=== PATIENT | male | born 1980 | race Caucasian/White ===

== ENCOUNTER 2018-01-12 09:41 | Emergency (ER) | payer BC ==
[2018-01-12 10:22] VITALS: RESP 18
[2018-01-12] MEDS ORDERED: KETOROLAC 30 MG/ML 1 ML VIAL IVP STA (10:40)
[2018-01-12] MEDS ORDERED: SODIUM CHLORIDE 0.9% 1,000 ML IV STA (10:40)
--- NOTE | 2018-01-12 10:46 | ED ---
General Adult HPI - General Chief complaint: Abdominal Pain Stated complaint: abdominal pain Time Seen by Provider: 01/12/18 10:34 Source: patient, RN notes reviewed Mode of arrival: ambulatory Limitations: no limitations - History of Present Illness Initial comments: 37-year-old male presents to the emergency department with a chief complaint of left-sided abdominal pain. Patient states that this started about 2 days ago. Patient states it initially came and went in with like a stabbing pain to the left side of the abdomen. He states is been no nausea there is been no vomiting. He denies any fever chills with this. He denies any diarrhea. She denies any history of abdominal pain like this in the past. He denies any surgeries on the abdomen. He states he was concerned because the pain was not getting any better and seemingly worsening so he thought that he should be seen. Patient denies any recent fever, chills, shortness of breath, chest pain, back pain, nausea vomiting, numbness or tingling, dysuria or hematuria, constipation or diarrhea, headaches or visual changes, or any other current symptoms. - Related Data Previous Rx's Medication Instructions Recorded Dicyclomine [Bentyl] 10 mg PO TID #20 capsule 01/12/18 Allergies Allergy/AdvReac Type Severity Reaction Status Date / Time Penicillins Allergy Unknown Verified 01/12/18 10:53 morphine AdvReac Nausea & Verified 01/12/18 10:53 Vomiting Review of Systems ROS Statement: Those systems with pertinent positive or pertinent negative responses have been documented in the HPI. ROS Other: All systems not noted in ROS Statement are negative. Past Medical History Past Medical History: No Reported History History of Any Multi-Drug Resistant Organisms: MRSA Date of last positivie culture/infection: 2003 MDRO Source:: shoulder/stomach/leg Additional Past Surgical History / Comment(s): foot, chest tube Past Psychological History: No Psychological Hx Reported Smoking Status: Current every day smoker Past Alcohol Use History: Occasional Past Drug Use History: None Reported General Exam - General Exam Comments Initial Comments: General: The patient is awake and alert, in no distress, and does not appear acutely ill. Eye: Pupils are equal, round and reactive to light, extra-ocular movements are intact; there is normal conjunctiva bilaterally. No signs of icterus. Ears, nose, mouth and throat: There are moist mucous membranes and no oral lesions. Neck: The neck is supple, there is no tenderness. Cardiovascular: There is a regular rate and rhythm. No murmur, rub or gallop is appreciated. Respiratory: Lungs are clear to auscultation, respirations are non-labored, breath sounds are equal. No wheezes, stridor, rales, or rhonchi. Gastrointestinal: Soft, non-distended, non-tender abdomen without masses or organomegaly noted. There is no rebound or guarding present. No CVA tenderness. Bowel sounds are unremarkable. Back: There is no tenderness to palpation in the midline. There is no obvious deformity. No rashes noted. Musculoskeletal: Normal ROM, no tenderness, There is no pedal edema. There is no calf tenderness or swelling. Sensation intact. Pulses equal bilaterally 2+. Neurological: CN II-XII intact, There are no obvious motor or sensory deficits. Coordination appears grossly intact. Speech is normal. Skin: Skin is warm and dry and no rashes or lesions are noted. Psychiatric: Cooperative, appropriate mood & affect, normal judgment. Limitations: no limitations Course Vital Signs 01/12/18 10:19 Temperature 99.0 F Pulse Rate 91 Respiratory 18 Rate Blood Pressure 138/93 O2 Sat by Pulse 97 Oximetry Medical Decision Making - Medical Decision Making 37-year-old male presents for left-sided abdominal pain. This time CAT scan is reviewed that does show suspicion for enteritis. This time we will start patient on Bentyl for home. We did discuss follow-up with her doctor. We discussed return parameters discussed outpatient and family's questions. They stated they understood and management this plan. All questions have been answered. They will be discharged. - Lab Data Result diagrams: 01/12/18 11:00 01/12/18 11:00 Lab Results 01/12/18 01/12/18 01/12/18 Range/Units 11:00 11:00 11:02 WBC 9.4 (3.8-10.6) k/uL RBC 5.01 (4.30-5.90) m/uL Hgb 16.4 (13.0-17.5) gm/dL Hct 50.7 (39.0-53.0) % MCV 101.2 H (80.0-100.0) fL MCH 32.7 (25.0-35.0) pg MCHC 32.3 (31.0-37.0) g/dL RDW 12.3 (11.5-15.5) % Plt Count 220 (150-450) k/uL Neutrophils % 85 % Lymphocytes % 7 % Monocytes % 6 % Eosinophils % 1 % Basophils % 0 % Neutrophils # 8.0 H (1.3-7.7) k/uL Lymphocytes # 0.6 L (1.0-4.8) k/uL Monocytes # 0.6 (0-1.0) k/uL Eosinophils # 0.1 (0-0.7) k/uL Basophils # 0.0 (0-0.2) k/uL Sodium 136 L (137-145) mmol/L Potassium 4.5 (3.5-5.1) mmol/L Chloride 99 (98-107) mmol/L Carbon Dioxide 26 (22-30) mmol/L Anion Gap 11 mmol/L BUN 14 (9-20) mg/dL Creatinine 0.82 (0.66-1.25) mg/dL Est GFR (MDRD) Af Amer >60 (>60 ml/min/1.73 sqM) Est GFR (MDRD) Non-Af >60 (>60 ml/min/1.73 sqM) Glucose 107 H (74-99) mg/dL Calcium 9.1 (8.4-10.2) mg/dL Total Bilirubin 0.4 (0.2-1.3) mg/dL AST 36 (17-59) U/L ALT 43 (21-72) U/L Alkaline Phosphatase 66 (38-126) U/L Total Protein 7.0 (6.3-8.2) g/dL Albumin 4.2 (3.5-5.0) g/dL Urine Color Yellow Urine Appearance Clear (Clear) Urine pH 6.5 (5.0-8.0) Ur Specific [place] 1.019 (1.001-1.035) Urine Protein Trace H (Negative) Urine Glucose (UA) Negative (Negative) Urine Ketones Negative (Negative) Urine Blood Negative (Negative) Urine Nitrite Negative (Negative) Urine Bilirubin Negative (Negative) Urine Urobilinogen 2.0 (<2.0) mg/dL Ur Leukocyte Esterase Negative (Negative) - Radiology Data Radiology results: report reviewed, image reviewed Disposition Clinical Impression: Enteritis Disposition: HOME SELF-CARE Condition: Stable Instructions: Enteritis (ED) Additional Instructions: Please use medication as discussed. Please follow up with family doctor if symptoms have not improved over the next two days. Please return to the emergency room if your symptoms increase or worsen or for any other concerns. Prescriptions: Dicyclomine [Bentyl] 10 mg PO TID #20 capsule Referrals: Von Amato DO [Primary Care Provider] - 1-2 days Time of Disposition: 12:37
[2018-01-12 11:17] LABS: Basophils % (A) 0 %; Eosinophils # (A) 0.1 k/uL (0-0.7); Eosinophils % (A) 1 %; HCT 50.7 % (39.0-53.0); HGB 16.4 gm/dL (13.0-17.5); Lymphocytes # (A) 0.6 k/uL (1.0-4.8); Lymphocytes % (A) 7 %; MCH 32.7 pg (25.0-35.0); MCHC 32.3 g/dL (31.0-37.0); MCV 101.2 fL (80.0-100.0); Mean Platelet Volume 7.1; Monocytes # (A) 0.6 k/uL (0-1.0); Monocytes % (A) 6 %; Neutrophils % (A) 85 %; Platelet Count 220 k/uL (150-450); RBC 5.01 m/uL (4.30-5.90); RDW 12.3 % (11.5-15.5); WBC 9.4 k/uL (3.8-10.6)
[2018-01-12 11:22] LABS: Appearance,Urine Clear (Clear); Bilirubin,Urine Negative (Negative); Blood,Urine Negative (Negative); Color,Urine Yellow; Glucose,Urine (UA) Negative (Negative); Ketones,Urine Negative (Negative); Leukocyte Esterase,Urine Negative (Negative); Nitrite,Urine Negative (Negative); PH, Urine 6.5 (5.0-8.0); Protein,Urine Trace (Negative); Specific Gravity,Urine 1.019 (1.001-1.035)
[2018-01-12] MEDS ORDERED: RX INFO: IV CONTRAST WAS GIVEN 1 EACH MISC MISCELLANE PRN (11:25)
[2018-01-12 11:34] LABS: ALT 43 U/L (21-72); AST 36 U/L (17-59); Albumin 4.2 g/dL (3.5-5.0); Alkaline Phosphatase 66 U/L (38-126); Anion Gap 11 mmol/L; Blood Urea Nitrogen 14 mg/dL (9-20); Calcium 9.1 mg/dL (8.4-10.2); Carbon Dioxide 26 mmol/L (22-30); Chloride 99 mmol/L (98-107); Glucose 107 mg/dL (74-99); Potassium 4.5 mmol/L (3.5-5.1); Sodium 136 mmol/L (137-145); Total Bilirubin 0.4 mg/dL (0.2-1.3)
--- NOTE | 2018-01-12 12:19 | CT ---
EXAMINATION TYPE: CT abdomen pelvis w con DATE OF EXAM: 01/12/2018 COMPARISON: NONE HISTORY: pain CT DLP: 1246 mGycm Automated exposure control for dose reduction was used. TECHNIQUE: Helical acquisition of images from the lung bases through the pelvis have been completed. CONTRAST: Performed without Oral Contrast and with IV Contrast, patient injected with 100 mL of Omnipaque 300. FINDINGS: LUNG BASES: Minimal dependent atelectatic changes are present. AORTA: No significant abnormality is appreciated. LIVER/GB: No significant abnormality is appreciated. PANCREAS: No significant abnormality is seen. SPLEEN: No significant abnormality is seen. ADRENALS: No significant abnormality is seen. KIDNEYS: No significant abnormality is seen. REPRODUCTIVE ORGANS: No significant abnormality is seen BOWEL: Fluid-filled loops of small bowel are present. Some hyperdense luminal content in the left lo wer quadrant may represent radiopaque medication. No evident inflammatory change. There is a small um bilical hernia containing fat. The appendix is not seen. FREE AIR: No Free Air visible. ASCITES: None visible. PELVIC ADENOPATHY: None visualized. RETROPERITONEAL ADENOPATHY: No Retroperitoneal Adenopathy visible. URINARY BLADDER: No significant abnormality is seen. OSSEOUS STRUCTURES: Degenerative disc changes are present in the visualized spine. IMPRESSION: CORRELATE FOR POSSIBLE ENTERITIS, ILEUS. Additional findings above.
[2018-01-12 12:42] VITALS: BP 149/86; PULSE 81; TEMP 98
== END 2018-01-12 12:45 | disposition home or self-care (01) ==
LOC: EC 09:41
DX: K52.9 Noninfective gastroenteritis and colitis, unspecified (principal); F17.200 Nicotine dependence, unspecified, uncomplicated; Z88.0 Allergy status to penicillin; Z88.5 Allergy status to narcotic agent; Z86.14 Personal history of Methicillin resistant Staphylococcus aureus infection
CPT/HCPCS: 36415; 80053; 85025; 81003; 87086; 74177; 99284; 96374; 96361 ×2; J1885; Q9967

== ENCOUNTER 2021-04-20 02:09 | Emergency (ER) | payer BC ==
[2021-04-20 02:16] VITALS: BP 121/74; PULSE 74; RESP 18; TEMP 97.4
--- NOTE | 2021-04-20 02:26 | ED ---
Lower Extremity Injury HPI - General Chief Complaint: Extremity Injury, Lower Stated Complaint: Right foot injury Time Seen by Provider: 04/20/21 02:16 Source: patient, RN notes reviewed Mode of arrival: wheelchair Limitations: no limitations - History of Present Illness Initial Comments: Patient is a 40-year-old male that presents immersed, right foot pain. He notes that he was at the gym yesterday when he dropped a 25 pump placement approximately one and a half to 2 feet off the ground on the top of his right foot. He notes that it swelled up a little bit but he tried icing and taking some Motrin. He notes that it is tender to the touch. He notes a does have some difficulty moving his second and third toe due to pain and some swelling. She denied any loss of sensation in his right foot. He notes that his work told him to come in to get evaluated as he was having difficulty putting on his work boot. He notes that the pain is tolerable at this point with just Motrin that he took prior to arrival. He noted that he walk on it but favors his heel. She denied any weakness numbness tingling in his right foot chest pain first breath headache nausea vomiting diarrhea constipation fever fatigue chills. - Related Data Previous Rx's Medication Instructions Recorded Dicyclomine [Bentyl] 10 mg PO TID #20 capsule 01/12/18 Allergies Allergy/AdvReac Type Severity Reaction Status Date / Time Penicillins Allergy Unknown Verified 01/12/18 10:53 morphine AdvReac Nausea & Verified 01/12/18 10:53 Vomiting Review of Systems ROS Statement: Those systems with pertinent positive or pertinent negative responses have been documented in the HPI. ROS Other: All systems not noted in ROS Statement are negative. Past Medical History Past Medical History: No Reported History History of Any Multi-Drug Resistant Organisms: MRSA Date of last positivie culture/infection: 2003 MDRO Source:: shoulder/stomach/leg Additional Past Surgical History / Comment(s): foot, chest tube Past Psychological History: No Psychological Hx Reported Smoking Status: Current some day smoker, Vaper Past Alcohol Use History: Occasional Past Drug Use History: None Reported General Exam Limitations: no limitations General appearance: alert, in no apparent distress Head exam: Present: atraumatic, normocephalic, normal inspection Eye exam: Present: normal appearance, PERRL, EOMI. Absent: scleral icterus, conjunctival injection, periorbital swelling Neck exam: Present: normal inspection Respiratory exam: Present: normal lung sounds bilaterally. Absent: respiratory distress, wheezes, rales, rhonchi, stridor Cardiovascular Exam: Present: regular rate, normal rhythm, normal heart sounds. Absent: systolic murmur, diastolic murmur, rubs, gallop, clicks GI/Abdominal exam: Present: soft, normal bowel sounds. Absent: distended, tenderness, guarding, rebound, rigid Extremities exam: Present: normal inspection, full ROM, normal capillary refill. Absent: tenderness, pedal edema, joint swelling, calf tenderness Right Foot/Toe exam: Present: tenderness (Across the top of the second and third metatarsals.), swelling (Generalized over the whole forefoot.). Absent: normal inspection, full ROM (Decreased secondary to swelling and pain), abrasion, laceration, ecchymosis, deformity, crepitus, dislocation, erythema, puncture wound, foreign body Neurological exam: Present: alert, oriented X3, CN II-XII intact Psychiatric exam: Present: normal affect, normal mood Skin exam: Present: warm, dry, intact, normal color. Absent: rash Course Vital Signs 04/20/21 02:11 Temperature 97.4 F L Pulse Rate 74 Respiratory 18 Rate Blood Pressure 121/74 O2 Sat by Pulse 96 Oximetry Medical Decision Making - Medical Decision Making Patient is a 40-year-old male with a right foot pain after dropping a 25 pound plate on it. X-ray right foot ordered. Patient declined the need for pain medication at this point as she took 2 200 mg tabs of Motrin before arrival stating that it is tolerable as of this moment. Patient declined any splinting or Isaak wrap at this time. Case discussed with Dr. Baker, patient can discharge home. - Radiology Data Radiology results: report reviewed, image reviewed X-ray right foot: Lucent linear lines are seen at the head of the first meta tarsal. These are likely prominent nutrient vessels unless there is pain in this area. Remaining bones are unremarkable. No dislocation. Disposition Clinical Impression: Right foot sprain, Contusion of right foot Disposition: HOME SELF-CARE Condition: Stable Instructions (If sedation given, give patient instructions): Foot Contusion (ED), Foot Sprain (ED) Additional Instructions: Please return to the Emergency Department if symptoms worsen or any other concerns. Rest ice compress elevate. Take Tylenol Motrin as needed for pain control. Avoid any strenuous activity or lifting, avoid being on feet throughout the day. Can use as tolerated. Work note given. Is patient prescribed a controlled substance at d/c from ED?: No Referrals: None,Stated [Primary Care Provider] - 1-2 days Time of Disposition: 03:01
--- NOTE | 2021-04-20 02:52 | XR ---
EXAM: XR Right Foot Complete, 3 or More Views CLINICAL HISTORY: ITS.REASON XR Reason: Right foot pain TECHNIQUE: Frontal, lateral and oblique views of the right foot. COMPARISON: No relevant prior studies available. IMPRESSION: Lucent linear lines are seen at the head of the first metatarsal. These are likely prominent nutrient vessels unless there is pain in this area. Remaining bones are unremarkable. No dislocation.
== END 2021-04-20 03:05 | disposition home or self-care (01) ==
LOC: EC 02:09
DX: S93.601A Unspecified sprain of right foot, initial encounter (principal); F17.290 Nicotine dependence, other tobacco product, uncomplicated; Z88.0 Allergy status to penicillin; Z88.5 Allergy status to narcotic agent; W20.8XXA Other cause of strike by thrown, projected or falling object, initial encounter; Y92.39 Other specified sports and athletic area as the place of occurrence of the external cause
CPT/HCPCS: 99283

== ENCOUNTER 2023-05-02 20:44 | Emergency (ER) | payer BC ==
[2023-05-02 21:43] LABS: Appearance,Urine Clear (Clear); Bacteria,Urine Rare /hpf; Bilirubin,Urine Negative (Negative); Blood,Urine Large (Negative); Color,Urine Light Red; Glucose,Urine (UA) Negative (Negative); Ketones,Urine Trace (Negative); Leukocyte Esterase,Urine Trace (Negative); Mucus,Urine Rare /hpf; Nitrite,Urine Negative (Negative); Protein,Urine 1+ (Negative); RBC,Urine >182 /hpf (0-5); Specific Gravity,Urine 1.021 (1.001-1.035); Urobilinogen,Urine <2.0 mg/dL (<2.0); WBC,Urine 37 /hpf (0-5)
[2023-05-02] MEDS ORDERED: SODIUM CHLORIDE 0.9% 1,000 ML IV ONE (21:43)
[2023-05-02 22:04] LABS: Basophils % (A) 0 %; Eosinophils # (A) 0.1 k/uL (0-0.7); Eosinophils % (A) 1 %; HCT 43.6 % (39.0-53.0); HGB 14.4 gm/dL (13.0-17.5); Lymphocytes # (A) 1.4 k/uL (1.0-4.8); Lymphocytes % (A) 11 %; MCH 31.1 pg (25.0-35.0); MCHC 33.1 g/dL (31.0-37.0); Mean Platelet Volume 7.6; Monocytes # (A) 0.7 k/uL (0-1.0); Monocytes % (A) 5 %; Neutrophils % (A) 82 %; Platelet Count 226 k/uL (150-450); RBC 4.64 m/uL (4.30-5.90); RDW 12.3 % (11.5-15.5); WBC 12.3 k/uL (3.8-10.6)
[2023-05-02 22:11] VITALS: RESP 16
[2023-05-02 22:15] LABS: ALT 35 U/L (4-49); AST 33 U/L (17-59); African American GFR (CKD) >90 (>60 ml/min/1.73 sqM); Albumin 4.6 g/dL (3.5-5.0); Alkaline Phosphatase 43 U/L (38-126); Anion Gap 8 mmol/L; Blood Urea Nitrogen 29 mg/dL (9-20); Calcium 9.2 mg/dL (8.4-10.2); Carbon Dioxide 29 mmol/L (22-30); Chloride 99 mmol/L (98-107); Glucose 125 mg/dL (74-99); Lipase 84 U/L (23-300); Magnesium 1.8 mg/dL (1.6-2.3); Non-African American GFR(CKD) >90 (>60 ml/min/1.73 sqM); Potassium 4.3 mmol/L (3.5-5.1); Sodium 136 mmol/L (137-145); Total Bilirubin 0.3 mg/dL (0.2-1.3); Total Protein 7.2 g/dL (6.3-8.2)
[2023-05-02] MEDS ORDERED: KETOROLAC 15 MG/ML 1 ML VIAL IVP STA (22:21)
--- NOTE | 2023-05-02 22:24 | ED ---
General Adult HPI - General Chief complaint: Abdominal Pain Stated complaint: POSSIBLE KIDNEY STONES Time Seen by Provider: 05/02/23 21:06 Source: patient Mode of arrival: ambulatory Limitations: no limitations - History of Present Illness Initial comments: This is a 42-year-old male with no past medical history presents emergency department for suprapubic abdominal pain. The patient stated this pain began at 2 PM and was consistent throughout the day and worsening tonight. The patient did state that once he arrived in the emergency department, he stated that the pain did plateau and did not get worse. The patient stated he associated nausea without vomiting. The patient stated that he had generalized abdominal pain that started to radiate to the left side of his abdomen but stated that this was no longer occurring at this time. The patient denied any other acute pain or complaints at this time. - Related Data Previous Rx's Medication Instructions Recorded HYDROcodone/APAP 5-325MG [Kim 1 tab PO Q6HR PRN 3 Days #6 tab 05/02/23 5-325] Ketorolac [Toradol] 10 mg PO TID #30 tab 05/02/23 Ondansetron Odt [Zofran Odt] 4 mg PO Q8HR PRN #20 tab 05/02/23 Tamsulosin [Flomax] 0.4 mg PO DAILY #30 cap 05/02/23 Allergies Allergy/AdvReac Type Severity Reaction Status Date / Time Penicillins Allergy Unknown Verified 05/02/23 22:22 morphine AdvReac Nausea & Verified 05/02/23 22:22 Vomiting Review of Systems ROS Statement: Those systems with pertinent positive or pertinent negative responses have been documented in the HPI. ROS Other: All systems not noted in ROS Statement are negative. Past Medical History Past Medical History: No Reported History History of Any Multi-Drug Resistant Organisms: MRSA Date of last positivie culture/infection: 2003 MDRO Source:: shoulder/stomach/leg Additional Past Surgical History / Comment(s): foot, chest tube Past Psychological History: No Psychological Hx Reported Smoking Status: Current some day smoker, Vaper Past Alcohol Use History: Occasional Past Drug Use History: None Reported General Exam Limitations: no limitations General appearance: alert, in no apparent distress Head exam: Present: atraumatic, normocephalic, normal inspection Eye exam: Present: normal appearance, PERRL Pupils: Present: normal accommodation ENT exam: Present: normal exam, normal oropharynx, mucous membranes moist Neck exam: Present: normal inspection, full ROM Respiratory exam: Present: normal lung sounds bilaterally Cardiovascular Exam: Present: regular rate, normal rhythm, normal heart sounds GI/Abdominal exam: Present: soft, normal bowel sounds Extremities exam: Present: normal inspection, full ROM Back exam: Present: normal inspection, full ROM Neurological exam: Present: alert, oriented X3, CN II-XII intact Psychiatric exam: Present: normal affect, normal mood Skin exam: Present: warm, dry Course Vital Signs 05/02/23 05/02/23 20:51 22:10 Temperature 98.4 F Pulse Rate 56 L 60 Respiratory 18 16 Rate Blood Pressure 135/83 136/80 O2 Sat by Pulse 97 99 Oximetry Medical Decision Making - Lab Data Result diagrams: 05/02/23 21:33 05/02/23 21:33 Lab Results 05/02/23 05/02/23 05/02/23 Range/Units 21:00 21:33 21:33 WBC 12.3 H (3.8-10.6) k/uL RBC 4.64 (4.30-5.90) m/uL Hgb 14.4 (13.0-17.5) gm/dL Hct 43.6 (39.0-53.0) % MCV 94.0 (80.0-100.0) fL MCH 31.1 (25.0-35.0) pg MCHC 33.1 (31.0-37.0) g/dL RDW 12.3 (11.5-15.5) % Plt Count 226 (150-450) k/uL MPV 7.6 Neutrophils % 82 % Lymphocytes % 11 % Monocytes % 5 % Eosinophils % 1 % Basophils % 0 % Neutrophils # 10.0 H (1.3-7.7) k/uL Lymphocytes # 1.4 (1.0-4.8) k/uL Monocytes # 0.7 (0-1.0) k/uL Eosinophils # 0.1 (0-0.7) k/uL Basophils # 0.0 (0-0.2) k/uL Sodium 136 L (137-145) mmol/L Potassium 4.3 (3.5-5.1) mmol/L Chloride 99 (98-107) mmol/L Carbon Dioxide 29 (22-30) mmol/L Anion Gap 8 mmol/L BUN 29 H (9-20) mg/dL Creatinine 0.89 (0.66-1.25) mg/dL Est GFR (CKD-EPI)AfAm >90 (>60 ml/min/1.73 sqM) Est GFR (CKD-EPI)NonAf >90 (>60 ml/min/1.73 sqM) Glucose 125 H (74-99) mg/dL Calcium 9.2 (8.4-10.2) mg/dL Magnesium 1.8 (1.6-2.3) mg/dL Total Bilirubin 0.3 (0.2-1.3) mg/dL AST 33 (17-59) U/L ALT 35 (4-49) U/L Alkaline Phosphatase 43 (38-126) U/L Total Protein 7.2 (6.3-8.2) g/dL Albumin 4.6 (3.5-5.0) g/dL Lipase 84 (23-300) U/L Urine Color Light Red Urine Appearance Clear (Clear) Urine pH 5.0 (5.0-8.0) Ur Specific [place] 1.021 (1.001-1.035) Urine Protein 1+ H (Negative) Urine Glucose (UA) Negative (Negative) Urine Ketones Trace H (Negative) Urine Blood Large H (Negative) Urine Nitrite Negative (Negative) Urine Bilirubin Negative (Negative) Urine Urobilinogen <2.0 (<2.0) mg/dL Ur Leukocyte Esterase Trace H (Negative) Urine RBC >182 H (0-5) /hpf Urine WBC 37 H (0-5) /hpf Urine Bacteria Rare H (None) /hpf Urine Mucus Rare H (None) /hpf Disposition Clinical Impression: Kidney stones Disposition: HOME SELF-CARE Condition: Stable Instructions (If sedation given, give patient instructions): Kidney Stones (ED) Prescriptions: Tamsulosin [Flomax] 0.4 mg PO DAILY #30 cap HYDROcodone/APAP 5-325MG [Kim 5-325] 1 tab PO Q6HR PRN 3 Days #6 tab PRN Reason: Pain Ketorolac [Toradol] 10 mg PO TID #30 tab Ondansetron Odt [Zofran Odt] 4 mg PO Q8HR PRN #20 tab PRN Reason: Nausea Is patient prescribed a controlled substance at d/c from ED?: Yes When asked, does pt state using other controlled substances?: No If prescribed controlled substance>3 days was MAPS reviewed?: Prescribed <3 Days If opioid is for acute pain is fill amount 7 days or less?: Yes If Rx opioid, was Start Talking consent form obtained?: Yes Referrals: None,Stated [Primary Care Provider] - 1-2 days Jaime Catherine MD [STAFF PHYSICIAN] - 1-2 days Time of Disposition: 23:00
--- NOTE | 2023-05-02 22:59 | CT ---
EXAM: CT Abdomen and Pelvis Without Intravenous Contrast CLINICAL HISTORY: ITS.REASON CT Reason: Kidney stones TECHNIQUE: Axial computed tomography images of the abdomen and pelvis without intravenous contrast. CTDI is 9.3 mGy and DLP is 546.1 mGy-cm. This CT exam was performed using one or more of the following dose reduction techniques: automated exposure control, adjustment of the mA and/or kV according to patient size, and/or use of iterative reconstruction technique. COMPARISON: 01/12/2018. FINDINGS: Lung bases: COPD. Scarring and subsegmental atelectasis noted at the lung bases. Heart: Heart is top normal in size. ABDOMEN: Liver: Fatty liver. Gallbladder and bile ducts: See below. Pancreas: See below. Spleen: Spleen is normal in contour. Adrenals: The adrenal glands, the head, body, tail of the pancreas and the gallbladder are unremarkable. Kidneys and ureters: Mild left hydronephrosis and moderate left hydroureter down to the left ureterovesical junction where there is a 0.4 cm calculus seen on series 201 image 131. No hydronephrosis of the right kidney. Stomach and bowel: Fluid-filled loops of small bowel. Consider enteritis. Moderate quantity of ingested material in the stomach. Consider constipation. No obstruction. PELVIS: Appendix: No findings to suggest acute appendicitis. Bladder: Diffuse bladder wall thickening. No stones. Reproductive: Heterogeneity of the prostate gland. ABDOMEN and PELVIS: Intraperitoneal space: Unremarkable. No free air. No significant fluid collection. Bones/joints: No acute fracture. No dislocation. No spondylolysis. Soft tissues: Unremarkable. Vasculature: Abdominal aorta is normal in caliber. No abdominal aortic aneurysm. Lymph nodes: Unremarkable. No enlarged lymph nodes. IMPRESSION: 1. A 0.4 cm calculus near the left ureterovesical junction resulting in left hydronephrosis and left hydroureter. It is possible that the calculus near the left ureterovesical junction has passed into the bladder and residual hydronephrosis left kidney is due to edema at the left ureterovesical junction. 2. Consider constipation. 3. Possible enteritis. 4. Right kidney is unremarkable. 5. The gallbladder is unremarkable.
[2023-05-02 23:30] VITALS: BP 117/86; PULSE 61; TEMP 97.9
== END 2023-05-02 23:30 | disposition home or self-care (01) ==
LOC: EC 20:44
DX: N13.2 Hydronephrosis with renal and ureteral calculous obstruction (principal); F17.290 Nicotine dependence, other tobacco product, uncomplicated; Z88.0 Allergy status to penicillin; Z88.5 Allergy status to narcotic agent
CPT/HCPCS: 36415; 80053; 83690; 83735; 85025; 81001; 87086; 74176; 99284; 96374; 96361; J1885